=== PATIENT | female | born 1970 | race Caucasian/White ===

== ENCOUNTER 2018-01-02 12:26 | Emergency (ER) | payer MEDICAID ==
[~2018-01-02] VITALS: Ht 175.3 cm; Wt 118.2 kg
[2018-01-02 12:34] VITALS: BP 137/97; Ht 175.3 cm; Wt 118.2 kg
[2018-01-02] MEDS ORDERED: BUPROPION XL300 MG PO (12:34)
[2018-01-02] MEDS ORDERED: OMEPRAZOLE20 M1 PO (12:35)
[2018-01-02] MEDS ORDERED: METOPROLOL TAR100 M1 PO (12:35)
[2018-01-02 16:40] LABS: BASOPHILS 0.6 % (0-2); HEMATOCRIT 42.2 % (36.0-48.0); IMMATURE GRANULOCYTES 0.6 % (0-5); LYMPHOCYTES 23.2 % (15-50); MCH 29.8 pg (26.0-34.0); MCHC 33.2 g/dL (31.0-37.0); MCV 89.8 fL (80.0-100.0); MEAN PLATELET VOLUME 9.9 fL (7.4-10.4); MONOCYTES 5.8 % (2-11); NEUTROPHILS 67.8 % (40-80); PLATELET COUNT 249 10x3/uL (130-400); RDW 13.1 % (11.5-14.5)
[2018-01-02 16:54] LABS: ALBUMIN 3.7 g/dL (3.4-5.0); ANION GAP 13.6 mmol/L (8-16); BILIRUBIN - TOTAL 0.53 mg/dL (0.2-1.3); CALCIUM 9.3 mg/dL (8.5-10.1); CARBON DIOXIDE 27.3 mmol/L (21.0-32.0); CREATININE - SERUM 0.9 mg/dL (0.6-1.3); POTASSIUM - SERUM 3.9 mmol/L (3.5-5.1); PROTEIN - SERUM 7.8 g/dL (6.4-8.2)
[2018-01-02 17:03] LABS: THYROID STIMULATING HORMONE 0.81 uIU/mL (0.36-3.74)
[2018-01-02 17:16] LABS: APPEARANCE CLEAR (CLEAR); BILIRUBIN NEGATIVE (NEGATIVE); COLOR DK YELLOW (YELLOW); GLUCOSE NEGATIVE (NEGATIVE); KETONE NEGATIVE (NEGATIVE); NITRITE NEGATIVE (NEGATIVE); PROTEIN TRACE mg/dL (NEGATIVE); SPECIFIC GRAVITY 1.025 (1.005-1.020); UROBILINOGEN NORMAL (NORMAL)
[2018-01-02 17:18] LABS: RED CELLS - URINE 0-5 /hpf (0-5); WHITE CELLS - URINE 25-50 /hpf (0-5)
[2018-01-02 17:21] LABS: BACTERIA MODERATE /hpf (NONE SEEN); EPITHELIAL CELLS 0-5 /hpf (0-5); MUCUS <1+ /lpf (NONE SEEN)
[2018-01-02 19:08] LABS: UDS - AMPHET NEGATIVE QUAL (NEGATIVE); UDS - BARB NEGATIVE QUAL (NEGATIVE); UDS - BENZO NEGATIVE QUAL (NEGATIVE); UDS - COCAINE NEGATIVE QUAL (NEGATIVE); UDS - OPIATE NEGATIVE QUAL (NEGATIVE); UDS - PCP NEGATIVE QUAL (NEGATIVE); UDS - THC NEGATIVE QUAL (NEGATIVE)
[2018-01-02 21:32] LABS: HCG URINE NEGATIVE (NEGATIVE)
== END 2018-01-03 00:25 ==
LOC: D.ER 12:26
PROVIDERS: Family Medicine
DX: R45.851 Suicidal ideations (principal); F32.9 Major depressive disorder, single episode, unspecified; N39.0 Urinary tract infection, site not specified; F17.200 Nicotine dependence, unspecified, uncomplicated